=== PATIENT | male | born 1960 | race Caucasian/White ===

== ENCOUNTER → 2020-02-18 | Day surgery (SDC) | payer OTHER ==
[~2020-02-18] MED LIST: EPINEPHrine 1 MG/1 ML Amp ONE; EPINEPHrine 1 MG/ML SDV ONE; HYDROmorphone 0.5 MG/0.5 ML Syringe IVPUSH PRN; Lactated Ringers 1,000 ML IV SCH; Lactated Ringers 1,000 ML ONE; Lidocaine 1% 2 ML ONE; Lidocaine 1% 4 ML ONE; Lidocaine 1%/Sod Bicarbonate in NS 8.4% 1 ML Syringe IDERM PRN; Midazolam 1 MG/ML 2 ML SDV ONE; Ondansetron 4 MG/2 ML SDV ONE; Propofol 200 MG/20 ML SDV ONE; Ropivacaine 0.5% 5 MG/ML 30 ML SDV ONE; Sodium Chloride 0.9% 10 ML Syringe FLUSH PRN; Succinylcholine/Sod PF 100 MG/5 ML SYRINGE IV ONE; ceFAZolin 1 GM Vial ONE; cloNIDine 1,000 MCG/10 ML SDV ONE; fentaNYL 100 MCG/2 ML SDV IVPUSH PRN; fentaNYL 100 MCG/2 ML SDV ONE
--- NOTE | 2020-02-18 08:10 | PCM.PREANE ---
Preanesthetic Assessment - Procedure Proposed Procedure: Right Shoulder SVA with Rotator Cuff Repair - Anesthesia/Transfusion/Family Hx Anesthesia History: Prior Anesthesia Without Reaction Family History of Anesthesia Reaction: No Transfusion History: No Prior Transfusion(s) Type of Transfusion Reactions: Reports: Unknown - Review of Systems General: No Symptoms Pulmonary: Other (Sleep Apnea with CPAP use. ) Cardiovascular: No Symptoms Gastrointestinal: No Symptoms Neurological: No Symptoms Other: Reports: None (Recovered from ETOH abuse. No ETOH since 2001. ) - Physical Assessment NPO Status Date: 02/17/20 NPO Status Time: 17:00 Weight: 84.6 kg ASA Class: 2 Mental Status: Alert & Oriented x3 Airway Class: Mallampati = 1 Dentition: Reports: Implants (Front Upper ) Thyro-Mental Finger Breadths: 3 Mouth Opening Finger Breadths: 3 ROM/Head Extension: Full Lungs: Clear to Auscultation, Normal Respiratory Effort Cardiovascular: Regular Rhythm, Bradycardia - Lab Values: Laboratory Last Values SARS Virus RNA (PCR) Negative (NEGATIVE) 02/16/20 10:52 MRSA (PCR) Negative 02/16/20 11:07 - Allergies Allergies/Adverse Reactions: Allergies Allergy/AdvReac Type Severity Reaction Status Date / Time No Known Allergies Allergy Verified 03/01/16 22:05 - Acknowledgements Anesthesia Type Planned: General Anesthesia, Regional Block (Interscalene Nerve Block Requested per Dr. Matamoros for post op pain control. ) Pt an Appropriate Candidate for the Planned Anesthesia: Yes Alternatives and Risks of Anesthesia Discussed w Pt/Guardian: Yes Pt/Guardian Understands and Agrees with Anesthesia Plan: Yes PreAnesthesia Questionnaire - Past Health History Medical/Surgical History: Denies Medical/Surgical History - Infectious Disease History Infectious Disease History: Reports: MRSA - Past Surgical History Musculoskeletal Surgical History: Reports: Other (See Below) - HOME MEDS Home Medications: Home Meds Non-Formulary Medication [NF Drug] 1 each .XX DAILY 03/02/16 [History] Aspirin [Ecotrin] 325 mg PO BID tab.ec 03/03/16 [Rx] Bisacodyl [Dulcolax] 5 mg PO DAILY PRN #0 tablet 03/03/16 [Rx] Docusate Sodium [Colace] 100 mg PO BID PRN #0 cap 03/03/16 [Rx] Famotidine [Pepcid] 20 mg PO Q12H tablet 03/03/16 [Rx] Magnesium Hydroxide [Milk of Magnesia] 30 ml PO BID PRN #0 cup 03/03/16 [Rx] Sennosides [Senna] 8.6 mg PO BID PRN #0 tablet 03/03/16 [Rx] diphenhydrAMINE [Benadryl] 25 mg PO Q4H PRN #0 tablet 03/03/16 [Rx] Acetaminophen/HYDROcodone [[place] 325-5 MG] 1 - 2 tab PO Q6H PRN #40 tablet 02/17 [Rx] Cyclobenzaprine [Flexeril] 10 mg PO Q12H PRN #20 tab 02/18/20 [Rx] - CURRENT (IN HOUSE) MEDS Current Meds: Current Medications Epinephrine HCl (Adrenalin) 3 mg .XX ONETIME ONE Stop: 02/18/20 09:01 Lactated Ringer's (Ringers, Lactated) 1,000 mls @ 125 mls/hr IV ASDIRECTED ROULA Stop: 02/18/20 23:00 Lidocaine/Sodium Bicarbonate (Buffered Lidocaine 1% In Ns 8.4%) 0.25 ml IDERM ONETIME PRN PRN Reason: Prior to IV Start Stop: 02/18/20 18:00 Sodium Chloride (Saline Flush) 10 ml FLUSH ASDIRECTED PRN PRN Reason: Keep Vein Open Stop: 02/18/20 18:00 Discontinued Medications Clonidine HCl (Duraclon) Confirm Administered Dose 1,000 mcg .ROUTE .STK-MED ONE Stop: 02/18/20 07:43 Epinephrine HCl (Adrenalin) Confirm Administered Dose 1 mg .ROUTE .STK-MED ONE Stop: 02/18/20 07:40 Fentanyl (Sublimaze) Confirm Administered Dose 100 mcg .ROUTE .STK-MED ONE Stop: 02/18/20 07:44 Midazolam HCl (Versed 1 Mg/Ml) Confirm Administered Dose 4 mg .ROUTE .STK-MED ONE Stop: 02/18/20 07:43 Ropivacaine (Naropin 0.5%) Confirm Administered Dose 30 ml .ROUTE .STK-MED ONE Stop: 02/18/20 07:40
--- NOTE | 2020-02-18 09:42 | PCM.PRNOTE ---
- Free Text/Narrative Note: Postoperative regional pain control requested by surgeon. Pre-op Dx: Right Rotator cuff tear Surgical procedure: Rt shoulder arthroscopy with Rotator cuff repair Procedure: Rt Interscalene block with U/S guidance Requesting physician: Dr. Amaury Nice Risks and benefits discussed with the patient preoperatively including infection , bleeding, incomplete or failed block, possible nerve damage, local anesthetic toxicity. Chart reviewed, VS stable. Permit signed. Patient in preoperative room, stable , alert and awake. Time out performed at 08 :33. Oxygen 3L via NC. Right side of the neck was prepped with Chloraprep x 1 and allowed to dry. Midazolam IV 4 mg (total, in incremental doses) were given. Under aseptic technique, the brachial plexus was identified under ultrasound prior to needle insertion. Local infiltration with 2mls of 1% Lidocaine. 2" Stimuplex needle #22 G was inserted under US guidance. Neuromuscular response of biceps contraction and forearm twitching elicited at 0.6 mA. Under direct visualization of needle tip the injection of 0.5% Ropivacaine with 1:200k epinephrine and 100 mcg of Clonidine, total of 30 mls in divided doses, maintaining negative aspiration was completed without problems. No local anesthetic toxicity was noted. Patient is awake, stable and tolerated the procedure well. Please see the attached U/S images Time: 08:33 - 08:43
--- NOTE | 2020-02-18 10:49 | PCM.POSTAN ---
POST ANESTHESIA ASSESSMENT - MENTAL STATUS Mental Status: Somnolent - VITAL SIGNS Vital Signs: 1st VS st in PACU 96.8F HR 62 RR 11 BP 126/79 SpO2 97% on 4 L O2 Last Vital Signs Temp 97.0 F 02/18/20 10:45 Pulse 61 02/18/20 10:45 Resp 18 02/18/20 10:45 BP 119/83 02/18/20 10:45 Pulse Ox 97 02/18/20 10:45 - RESPIRATORY Respiratory Status: Respiratory Rate WNL, Airway Patent, O2 Saturation Stable - CARDIOVASCULAR CV Status: Pulse Rate WNL, Blood Pressure Stable - GASTROINTESTINAL GI Status: No Symptoms - PAIN Pain Score: 0 - POST OP HYDRATION Hydration Status: Adequate & Stable
[2020-02-18 12:00] VITALS: BP 122/78; PULSE 62
--- NOTE | 2020-02-22 12:19 | PCM.OPNOTE ---
- General Post-Op/Procedure Note Date of Surgery/Procedure: 02/18/20 Operative Procedure(s): right shoulder video arthroscopy with medium rotator cuff repair, subacromial decompression and extensive debridement with biceps tenotomy Pre Op Diagnosis: right shoulder rotator cuff tear with impingement with biceps tendinopathy Post-Op Diagnosis: Same Anesthesia Technique: General ET Tube, Regional Block Primary Surgeon: Amaury Matamoros Anesthesia Provider: José Jenkins [employer] Designer: Roselia Toro EBHolli in mLs: 5 Complications: None Condition: Good
--- NOTE | 2020-02-23 11:40 | OR ---
DATE OF OPERATION: 02/18/2020 SURGEON: Amaury Matamoros MD OPERATION PERFORMED: Right shoulder video arthroscopy with medium rotator cuff repair, subacromial decompression, and extensive debridement with biceps tenotomy. PREOPERATIVE DIAGNOSIS: Right shoulder rotator cuff tear with impingement and biceps tendinopathy. POSTOPERATIVE DIAGNOSIS: Right shoulder rotator cuff tear with impingement and biceps tendinopathy. ANESTHESIA: Technique: General endotracheal intubation with regional interscalene block. ANESTHESIA PROVIDER: Valentine Shaver. PARAMEDIC: Roselia Toro PA-C ESTIMATED BLOOD LOSS: Less than 5 mL. COMPLICATIONS: None. CONDITION: Stable. DESCRIPTION OF PROCEDURE: The patient was identified in the preop holding area. Proper site was marked and identified by the surgeon. The patient was taken back to the operating theater where after adequate anesthesia, the patient was placed in the lazy left lateral decubitus position. Wedge was placed posteriorly. The patient was secured to the table. Right upper extremity was then sterilely prepped and draped in the usual sterile fashion. OR time-out was performed. The patient received 2 g IV Ancef. 12 pounds traction was applied to the right upper extremity. At this time, a standard posterior incision was made. Scope trocar was introduced to the glenohumeral joint. The patient was noted to have no chondromalacia. With the use of a spinal needle, anterior portal was created with outside in technique. The biceps tendon was noted to have significant fraying at its attachment as well as tendinopathy. The subscapularis tendon was intact. The patient was noted to have a full-thickness rotator cuff tear in the midportion of the supraspinatus. At this time, a biceps tenotomy was performed and a significant debridement of any fraying of the labrum as well as synovitis was done at this time as well. Once this was completed, attention was turned to the subacromial space. The patient was noted to have a significant amount of bursitis and extensive debridement was done of the subacromial space. The tear was identified and with use of a resector as well as a navi, a good bony bleeding bed was prepared for repair of the rotator cuff. An Arthrex all-suture anchor was then placed medially and it was triple-loaded. At this time, the six limbs of the tape were started anteriorly and brought all the way past posteriorly and had good convergence on the tear. At this time, one lateral row Maria D anchor was placed anteriorly and then was placed posteriorly, bringing out three limbs in each of those for cross pattern across the tear site with good compression and complete hinduism of the footprint of the supraspinatus. It was found to have watertight repair. An extensive debridement of the undersurface of the acromion was done and then an acromioplasty was done from the lateral portal which was created earlier. This was brought back to a smooth border with the posterior rim of the acromion. Excess saline was drained from the joint. 3-0 nylon suture was used for closure of skin. The patient was placed in a sterile soft dressing and a pillow sling and sent to the PACU in stable condition. CAROLA /[id number]
== END | disposition home or self-care (01) ==
LOC: JD.SDS 06:52
PROVIDERS: ATTEND Orthopaedic Surgery
DX: M75.121 Complete rotator cuff tear or rupture of right shoulder, not specified as traumatic (principal); M75.21 Bicipital tendinitis, right shoulder; M25.811 Other specified joint disorders, right shoulder; Z11.59 Encounter for screening for other viral diseases; Z79.82 Long term (current) use of aspirin; Z79.899 Other long term (current) drug therapy
CPT/HCPCS: 29823; 29826; 29827; 87635; 87641; J0171; J0330; J0690; J0735; J2001; J2250; J2405; J2704; J2795; J3010; J7120; 01630; 64415; U0002

== ENCOUNTER 2020-06-02 08:08 | Day surgery (SDC) | payer OTHER ==
[~2020-06-02 08:08] MED LIST changes: -EPINEPHrine 1 MG/1 ML Amp ONE; -EPINEPHrine 1 MG/ML SDV ONE; -HYDROmorphone 0.5 MG/0.5 ML Syringe IVPUSH PRN; -Lactated Ringers 1,000 ML ONE; -Lidocaine 1% 2 ML ONE; -Ondansetron 4 MG/2 ML SDV ONE; -Ropivacaine 0.5% 5 MG/ML 30 ML SDV ONE; -Succinylcholine/Sod PF 100 MG/5 ML SYRINGE IV ONE; -ceFAZolin 1 GM Vial ONE; -cloNIDine 1,000 MCG/10 ML SDV ONE; -fentaNYL 100 MCG/2 ML SDV IVPUSH PRN
--- NOTE | 2020-06-02 08:39 | PCM.PREANE ---
Preanesthetic Assessment - Procedure Proposed Procedure: hardware removal right patella - Anesthesia/Transfusion/Family Hx Anesthesia History: Prior Anesthesia Without Reaction Family History of Anesthesia Reaction: No Transfusion History: No Prior Transfusion(s) Type of Transfusion Reactions: Reports: Unknown - Review of Systems General: No Symptoms Pulmonary: No Symptoms Cardiovascular: No Symptoms Gastrointestinal: No Symptoms Neurological: No Symptoms Other: Reports: None - Physical Assessment NPO Status Date: 06/01/20 NPO Status Time: 00:00 Vital Signs: Last Vital Signs Temp 36.3 C 06/02/20 08:05 Pulse 60 06/02/20 08:05 Resp 16 06/02/20 08:05 BP 134/93 H 06/02/20 08:05 Pulse Ox 97 06/02/20 08:05 Height: 1.73 m Weight: 85.729 kg ASA Class: 2 Mental Status: Alert & Oriented x3 Airway Class: Mallampati = 1 Dentition: Reports: Normal Dentition, [place](s), Implants (front top) Thyro-Mental Finger Breadths: 3 Mouth Opening Finger Breadths: 3 ROM/Head Extension: Full Lungs: Clear to Auscultation, Normal Respiratory Effort Cardiovascular: Regular Rate, Regular Rhythm - Lab Values: Laboratory Last Values SARS Virus RNA (PCR) Negative (NEGATIVE) 05/31/20 11:25 MRSA (PCR) Negative 05/31/20 11:14 - Imaging/EKG Impressions: EKG SR rate 59 - Allergies Allergies/Adverse Reactions: Allergies Allergy/AdvReac Type Severity Reaction Status Date / Time No Known Allergies Allergy Verified 06/01/20 14:11 - Blood Blood Available: No Product(s) Available: None - Anesthesia Plan Pre-Op Medication Ordered: None - Acknowledgements Anesthesia Type Planned: MAC Pt an Appropriate Candidate for the Planned Anesthesia: Yes Alternatives and Risks of Anesthesia Discussed w Pt/Guardian: Yes Pt/Guardian Understands and Agrees with Anesthesia Plan: Yes PreAnesthesia Questionnaire - Past Health History Medical/Surgical History: Denies Medical/Surgical History HEENT History: Reports: None Cardiovascular History: Reports: None Respiratory History: Reports: Sleep Apnea Gastrointestinal History: Reports: None Genitourinary History: Reports: None 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: 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: 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 Musculoskeletal History: Reports: None Neurological History: Reports: None Psychiatric History: Reports: None Endocrine/Metabolic History: Reports: None Hematologic History: Reports: None Immunologic History: Reports: None Oncologic (Cancer) History: Reports: None Dermatologic History: Reports: None - Infectious Disease History Infectious Disease History: Reports: None - Past Surgical History Head Surgeries/Procedures: Reports: None HEENT Surgical History: Reports: None Cardiovascular Surgical History: Reports: None Respiratory Surgical History: Reports: None GI Surgical History: Reports: Colonoscopy Female Surgical History: Reports: None Male Surgical History: Reports: None Endocrine Surgical History: Reports: None Neurological Surgical History: Reports: None Musculoskeletal Surgical History: Reports: Shoulder Surgery, Other (See Below) Other Musculoskeletal Surgeries/Procedures:: Right knee surgery in 1980, torn meniscus/ACL. Left knee surgery in 1977, torn meniscus. Left hand surgery, hand caught in table saw with cut tendons repaired Oncologic Surgical History: Reports: None Dermatological Surgical History: Reports: None - SUBSTANCE USE Smoking Status *Q: Never Smoker Tobacco Use Within Last Twelve Months: No Second Hand Smoke Exposure: Yes Days Per Week of Alcohol Use: 0 Number of Drinks Per Day: 0 Total Drinks Per Week: 0 Recreational Drug Use History: No - HOME MEDS Home Medications: Home Meds Cholecalciferol (Vitamin D3) [Vitamin D3] 1,000 unit PO DAILY 06/01/20 [History] Cyanocobalamin (Vitamin B12) [Vitamin B12] 1,000 mcg PO DAILY 06/01/20 [History] Lactobacillus Combo No.10 [Probiotic] 1 cap PO DAILY 06/01/20 [History] Testosterone Vitamin 1 dose PO DAILY 06/01/20 [History] Zinc 50 mg PO DAILY 06/01/20 [History] Acetaminophen/HYDROcodone [[place] 325-5 MG] 1 - 2 tab PO Q6H PRN #30 tablet 06/02/20 [Rx] Aspirin 325 mg PO BID #84 tab 06/02/20 [Rx] - CURRENT (IN HOUSE) MEDS Current Meds: Current Medications Lactated Ringer's (Ringers, Lactated) 1,000 mls @ 125 mls/hr IV ASDIRECTED ROULA Stop: 06/02/20 23:00 Last Admin: 06/02/20 08: Dose: 125 mls/hr Documented by: Lidocaine/Sodium Bicarbonate (Buffered Lidocaine 1% In Ns 8.4%) 0.25 ml IDERM ONETIME PRN PRN Reason: Prior to IV Start Stop: 06/02/20 18:00 Last Admin: 06/02/20 08:20 Dose: 0.25 ml Documented by: Sodium Chloride (Saline Flush) 10 ml FLUSH ASDIRECTED PRN PRN Reason: Keep Vein Open Stop: 06/02/20 18:00 Discontinued Medications Fentanyl (Sublimaze) Confirm Administered Dose 100 mcg .ROUTE .STK-MED ONE Stop: 06/02/20 07:56 Lidocaine HCl (Xylocaine-Mpf 1%) Confirm Administered Dose 4 mls @ as directed .ROUTE .STK-MED ONE Stop: 06/02/20 07:55 Midazolam HCl (Versed 1 Mg/Ml) Confirm Administered Dose 2 mg .ROUTE .STK-MED ONE Stop: 06/02/20 07:56 Propofol (Diprivan 20 Ml) Confirm Administered Dose 200 mg .ROUTE .STK-MED ONE Stop: 06/02/20 07:55
[2020-06-02] MEDS ORDERED: Bupivacaine 0.25% 10 ML SDV ONE (09:01)
[2020-06-02] MEDS ORDERED: ceFAZolin 1 GM Vial ONE (09:28)
[2020-06-02] MEDS ORDERED: Propofol 200 MG/20 ML SDV ONE ×2 (09:56→10:26)
[2020-06-02] MEDS ORDERED: Lactated Ringers 1,000 ML ONE (10:29)
--- NOTE | 2020-06-02 11:13 | PCM48HPAN ---
Post Anesthesia Note - EVALUATION WITHIN 48HRS OF ANESTHETIC Vital Signs in Normal Range: Yes Patient Participated in Evaluation: Yes Respiratory Function Stable: Yes Airway Patent: Yes Cardiovascular Function Stable: Yes Hydration Status Stable: Yes Pain Control Satisfactory: Yes Nausea and Vomiting Control Satisfactory: Yes Mental Status Recovered: Yes Vital Signs: Last Vital Signs Temp 36.3 C 06/02/20 08:05 Pulse 60 06/02/20 08:05 Resp 16 06/02/20 08:05 BP 134/93 H 06/02/20 08:05 Pulse Ox 97 06/02/20 08:05 - COMMENTS/OBSERVATIONS Free Text/Narrative:: no anesthesia complications noted
[2020-06-02] MEDS ORDERED: Acetaminophen/HYDROcodone 325-5 MG Tab PO SCH (11:29)
[2020-06-02 11:30] VITALS: BP 131/89; PULSE 64
--- NOTE | 2020-06-03 07:11 | CR ---
Patella: AP and lateral views were obtained utilizing C-arm device during reduction and fixation of patellar fracture. Final film shows 2 cannulated screws and third transverse screw being in place. This patellar fracture shows final position that is near anatomic. Fluoroscopy time is given as to 39.7 seconds. Degenerative change noted within the knee. Impression: 1. Procedural study as noted above. 2. Degenerative change within the knee. Diagnostic code #2 This report was dictated in MDT
--- NOTE | 2020-06-08 08:42 | PCM.OPNOTE ---
- General Post-Op/Procedure Note Date of Surgery/Procedure: 06/01/20 Operative Procedure(s): deep hardware removal right patella Pre Op Diagnosis: painful hardware right patella Post-Op Diagnosis: Same Anesthesia Technique: Local, MAC Primary Surgeon: Amaury Matamoros Anesthesia Provider: Marc Marquez EBHolli in mLs: 10 Complications: None Condition: Good
--- NOTE | 2020-06-08 09:55 | OR ---
DATE OF OPERATION: 06/02/2020 SURGEON: Amaury Matamoros MD OPERATION PERFORMED: Deep hardware removal, right patella. PREOPERATIVE DIAGNOSIS: Painful hardware, right patella. POSTOPERATIVE DIAGNOSIS: Painful hardware, right patella. ANESTHESIA: Local MAC. SAMPLE WRAPPER: None. ANESTHESIA PROVIDER: Nino Torres CRNA ESTIMATED BLOOD LOSS: 10 mL. COMPLICATIONS: None. CONDITION: Stable. DESCRIPTION OF PROCEDURE: The patient was identified in the preoperative holding area. Proper site was marked and identified by surgeon. The patient was taken back to the operative theater, where after adequate anesthesia, the patient's right lower extremity was sterilely prepped and draped in the usual sterile fashion. OR time-out was performed. The patient received 2 g of IV Ancef at this time. Preoperatively, the patient and I had discussed that we would not open the entire incision. We would try just to do percutaneous removal of the screws and that we would not be removing the smaller 2.7 screw as it is deeper and would not be in the way of the patellar button when we do our total knee arthroplasty. So, at this time, utilizing C-arm fluoroscopy during the entire procedure, I made a small incision near the inferior pole of the patella, near the medial screw. A guidewire was then placed through the screw. I was able to then remove the screw without difficulty with no remaining hardware of the medial screw. At this time, small percutaneous incision was made laterally. A guide pin was then placed again through the screw. At this point, though, there was significant bony overgrowth and there would have been significant need for removal of patella as well as a larger incision to remove that screw. At this point, it was decided that doing unnecessary damage before total knee arthroplasty would not be warranted, so that we would just remove the remaining screws when we do the total knee arthroplasty at that time as they will be more visible. The patient and his after the anesthesia wore off were in understanding. At this time, adequate saline was irrigated through the wounds. 2-0 Vicryl was used subcutaneously, and nylon was used for closure of the skin. The patient had a sterile soft dressing applied and was sent to the PACU in stable condition and tolerated the procedure well. MMODAL /[id number]
== END 2020-06-02 12:20 | disposition home or self-care (01) ==
LOC: JD.SDS 08:08
PROVIDERS: ATTEND Orthopaedic Surgery
DX: T84.84XA Pain due to internal orthopedic prosthetic devices, implants and grafts, initial encounter (principal); G47.33 Obstructive sleep apnea (adult) (pediatric); Z01.812 Encounter for preprocedural laboratory examination; Z20.828 Contact with and (suspected) exposure to other viral communicable diseases; Z98.890 Other specified postprocedural states
CPT/HCPCS: 20680; 76000; 87635; 87641; A9270; C1769; J0690; J2001; J2250; J2704; J3010; J3490; J7120; 01480; U0002

== ENCOUNTER 2020-07-25 05:58 | Day surgery (SDC) | payer OTHER ==
[~2020-07-25 05:58] MED LIST changes: -Lidocaine 1% 4 ML ONE; -Midazolam 1 MG/ML 2 ML SDV ONE; -Propofol 200 MG/20 ML SDV ONE; -fentaNYL 100 MCG/2 ML SDV ONE
[2020-07-25] MEDS ORDERED: Morphine 8 MG, EPINEPHrine 0.3 MG, Cefuroxime 750 MG, Ketorolac 30 MG, Sodium Chloride ... PRN ×10 (06:00→07:03)
[2020-07-25] MEDS ORDERED: Bupivacaine 0.25% 10 ML SDV ONE (06:12)
[2020-07-25] MEDS ORDERED: oxyCODONE ER 10 MG TAB.ER PO SCH (06:15)
[2020-07-25] MEDS ORDERED: Pregabalin 25 MG Cap PO SCH (06:15)
[2020-07-25] MEDS ORDERED: Acetaminophen 325 MG Tab PO SCH (06:15)
--- NOTE | 2020-07-25 06:35 | PCM.PREANE ---
Preanesthetic Assessment - Anesthesia/Transfusion/Family Hx Anesthesia History: Prior Anesthesia Without Reaction Family History of Anesthesia Reaction: No Transfusion History: No Prior Transfusion(s) Type of Transfusion Reactions: Reports: Unknown - Review of Systems General: No Symptoms Pulmonary: No Symptoms Cardiovascular: No Symptoms Gastrointestinal: No Symptoms Neurological: No Symptoms Other: Reports: None - Physical Assessment NPO Status Date: 07/24/20 NPO Status Time: 18:30 ASA Class: 2 Mental Status: Alert & Oriented x3 Airway Class: Mallampati = 1 Dentition: Reports: Normal Dentition Thyro-Mental Finger Breadths: 3 Mouth Opening Finger Breadths: 3 ROM/Head Extension: Full Lungs: Clear to Auscultation, Normal Respiratory Effort Cardiovascular: Regular Rate, Regular Rhythm - Lab Values: Laboratory Last Values MRSA (PCR) Negative 07/13/20 15:05 - Allergies Allergies/Adverse Reactions: Allergies Allergy/AdvReac Type Severity Reaction Status Date / Time No Known Allergies Allergy Verified 07/25/20 06:28 - Acknowledgements Anesthesia Type Planned: Spinal Pt an Appropriate Candidate for the Planned Anesthesia: Yes Alternatives and Risks of Anesthesia Discussed w Pt/Guardian: Yes Pt/Guardian Understands and Agrees with Anesthesia Plan: Yes PreAnesthesia Questionnaire - Past Health History Medical/Surgical History: Denies Medical/Surgical History HEENT History: Reports: Impaired Vision Cardiovascular History: Reports: None Respiratory History: Reports: Sleep Apnea (CPAP) Gastrointestinal History: Reports: None Genitourinary History: Reports: None 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 INSPECTOR 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: 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: 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 Musculoskeletal History: Reports: None Neurological History: Reports: None Psychiatric History: Reports: None Endocrine/Metabolic History: Reports: None Hematologic History: Reports: None Immunologic History: Reports: None Oncologic (Cancer) History: Reports: None Dermatologic History: Reports: None - Infectious Disease History Infectious Disease History: Reports: None - Past Surgical History Head Surgeries/Procedures: Reports: None HEENT Surgical History: Reports: None Cardiovascular Surgical History: Reports: None Respiratory Surgical History: Reports: None GI Surgical History: Reports: Colonoscopy Female Surgical History: Reports: None Male Surgical History: Reports: None Endocrine Surgical History: Reports: None Neurological Surgical History: Reports: None Musculoskeletal Surgical History: Reports: Shoulder Surgery, Other (See Below) Other Musculoskeletal Surgeries/Procedures:: Right knee surgery in 1980, torn meniscus/ACL. Left knee surgery in 1977, torn meniscus. Left hand surgery, hand caught in table saw with cut tendons repaired, R SVSA with RCR and SAD Oncologic Surgical History: Reports: None Dermatological Surgical History: Reports: None - SUBSTANCE USE Tobacco Use Status *Q: Former Tobacco User Recreational Drug Use History: No - HOME MEDS Home Medications: Home Meds Cholecalciferol (Vitamin D3) [Vitamin D3] 1,000 unit PO DAILY 06/01/20 [History] Cyanocobalamin (Vitamin B12) [Vitamin B12] 1,000 mcg PO DAILY 06/01/20 [History] Lactobacillus Combo No.10 [Probiotic] 1 cap PO DAILY 06/01/20 [History] Testosterone Vitamin 1 dose PO DAILY 06/01/20 [History] Zinc 50 mg PO DAILY 06/01/20 [History] Fish Oil/[place]-3 Fatty Acids [Fish Oil 1,000 MG] 1 gm PO DAILY 07/22/20 [History] Dipika 500 mg PO DAILY 07/22/20 [History] Saw/Vit E/Sod [place]/Lyc/Beta/Pyg [Prostate Health Caplet] 1 tab PO DAILY 07/22/20 [History] Vitamin K2 40 mcg PO DAILY 07/22/20 [History] - CURRENT (IN HOUSE) MEDS Current Meds: Current Medications Acetaminophen (Tylenol) 975 mg PO NOW ROULA Stop: 07/25/20 12:00 Last Admin: 07/25/20 06:27 Dose: 975 mg Documented by: Lactated Ringer's (Ringers, Lactated) 1,000 mls @ 125 mls/hr IV ASDIRECTED ROULA Stop: 07/25/20 23:00 Last Admin: 07/25/20 06:27 Dose: 125 mls/hr Documented by: Lidocaine/Sodium Bicarbonate (Buffered Lidocaine 1% In Ns 8.4%) 0.25 ml IDERM ONETIME PRN PRN Reason: Prior to IV Start Stop: 07/25/20 23:00 Last Admin: 07/25/20 06:27 Dose: 0.25 ml Documented by: Oxycodone HCl (Oxycontin) 10 mg PO ONETIME ROULA Stop: 07/25/20 12:00 Last Admin: 07/25/20 06:27 Dose: 10 mg Documented by: Pregabalin (Lyrica) 50 mg PO ONETIME ROULA Stop: 07/25/20 12:00 Last Admin: 07/25/20 06:27 Dose: 50 mg Documented by: Sodium Chloride (Saline Flush) 10 ml FLUSH ASDIRECTED PRN PRN Reason: Keep Vein Open Stop: 07/25/20 23:00 Discontinued Medications Bupivacaine HCl (Sensorcaine-Mpf 0.25%) Confirm Administered Dose 30 ml .ROUTE .STK-MED ONE Stop: 07/25/20 06:13 Morphine Sulfate 8 mg/Epinephrine HCl 0.3 mg/Cefuroxime Sodium 750 mg/Ketorolac Tromethamine 30 mg/Sodium Chloride 7.9 ml 0 mg .XX ASDIRECTED PRN PRN Reason: Pain Tranexamic Acid (Cyklokapron) Confirm Administered Dose 1,000 mg .ROUTE .STK-MED ONE Stop: 07/25/20 06:13 Vancomycin HCl (Vancomycin) Confirm Administered Dose 1 gm .ROUTE .STK-MED ONE Stop: 07/25/20 06:13
[2020-07-25] MEDS ORDERED: Lidocaine 1% 4 ML ONE (06:46)
[2020-07-25] MEDS ORDERED: Propofol 200 MG/20 ML SDV ONE ×2 (06:46→08:03)
[2020-07-25] MEDS ORDERED: fentaNYL 100 MCG/2 ML SDV ONE (06:48)
[2020-07-25] MEDS ORDERED: Midazolam 1 MG/ML 2 ML SDV ONE (06:48)
[2020-07-25] MEDS ORDERED: ceFAZolin 1 GM Vial ONE (06:49)
[2020-07-25] MEDS ORDERED: ePHEDrine 50 MG/ML SDV ONE (07:32)
[2020-07-25] MEDS ORDERED: EPINEPHrine 1 MG/ML SDV ONE (07:39)
[2020-07-25] MEDS ORDERED: Ropivacaine 0.5% 5 MG/ML 30 ML SDV ONE (07:39)
[2020-07-25] MEDS ORDERED: fentaNYL 100 MCG/2 ML SDV IVPUSH PRN (07:43)
[2020-07-25] MEDS ORDERED: Ondansetron 4 MG/2 ML SDV IVPUSH PRN (07:43)
[2020-07-25] MEDS ORDERED: Lactated Ringers 1,000 ML ONE (07:52)
[2020-07-25] MEDS ORDERED: Ketorolac 30 MG/ML SDV ONE (08:10)
[2020-07-25] MEDS ORDERED: Ondansetron 4 MG/2 ML SDV ONE (08:10)
[2020-07-25] MEDS: Vancomycin 1 GM SDV ONE ×2 (08:15→08:25)
--- NOTE | 2020-07-25 08:49 | PCM.POSTAN ---
POST ANESTHESIA ASSESSMENT - MENTAL STATUS Mental Status: Alert, Oriented - VITAL SIGNS Vital Signs: Last Vital Signs Temp 36.5 C 07/25/20 06:05 Pulse 62 07/25/20 06:05 Resp 16 07/25/20 06:05 BP 113/84 07/25/20 06:05 Pulse Ox 98 07/25/20 06:05 - RESPIRATORY Respiratory Status: Respiratory Rate WNL, Airway Patent, O2 Saturation Stable - CARDIOVASCULAR CV Status: Pulse Rate WNL, Blood Pressure Stable - GASTROINTESTINAL GI Status: No Symptoms - PAIN Pain Score: 0 - POST OP HYDRATION Hydration Status: Adequate & Stable
--- NOTE | 2020-07-25 09:43 | PCM.SN.2 ---
- Free Text/Narrative Note: Right selective femoral nerve block at the adductor canal for post-procedure pain control under US guidance requested by Dr. Matamoros. Time Out: 906 Start: 906 End: 911 Chart reviewed. Consent signed. Questions answered. Appropriate monitors applied. Time out performed. Right mid-shaft femur identified with ultrasound, scanning medially of femur, the femoral artery in the adductor canal visualized, and the femoral nerve located laterally to the artery. The skin was prepped lateral to the ultrasound probe with chlorahexadine times two. The 21ga 4 insulated block needle was inserted under direct ultrasound guidance into the adductor canal. 25 mL of 0.5% ropivacaine with 1:200,000 epinephrine was injected circumferentially around the nerve with intermittent negative aspiration noted. Patient tolerated the procedure well. Sterile technique noted along with sterile gloves, mask, and sterile probe cover. See picture on progress note and vital signs on nurses notes. Block completed in PACU. Marc Marquez CRNA
--- NOTE | 2020-07-25 10:55 | CR ---
PROCEDURE INFORMATION: Exam: XR Right Knee Exam date and time: 07/25/2020 9:06 AM Age: 60 years old Clinical indication: Condition or disease; Joint replacement status; Knee; Right; Additional info: Right total knee replacement; Post-op films TECHNIQUE: Imaging protocol: XR Right knee. Views: 1 or 2 views. COMPARISON: CR Bone Age Study, Bone Length Scanogram, Knee 3V Rt, Knee Standing 05/11/2020 1:14 PM FINDINGS: Bones/joints: There is a right total knee arthroplasty without evidence of hardware complication. Screws are again present in the patella. Very small residual osteophytes at the medial and lateral as well as posterior articular margins of the tibia and at the lateral femoral condyle. No acute fracture. Normal alignment. Bone mineralization is normal. Soft tissues: There is postoperative soft tissue air anteriorly. Anterior soft tissue swelling. Knee joint effusion appears to be present. IMPRESSION: Right total knee arthroplasty without evidence of hardware complication. Thank you for allowing us to participate in the care of your patient. Dictated and Authenticated by: Era Corrigan MD 07/25/2020 10:47 AM Central Time ([place] & [place]) ARIANE
--- NOTE | 2020-07-25 11:28 | PCM48HPAN ---
Post Anesthesia Note - EVALUATION WITHIN 48HRS OF ANESTHETIC Vital Signs in Normal Range: Yes Patient Participated in Evaluation: Yes Respiratory Function Stable: Yes Airway Patent: Yes Cardiovascular Function Stable: Yes Hydration Status Stable: Yes Pain Control Satisfactory: Yes Nausea and Vomiting Control Satisfactory: Yes Mental Status Recovered: Yes Vital Signs: Last Vital Signs Temp 36.8 C 07/25/20 10:50 Pulse 70 07/25/20 10:50 Resp 12 07/25/20 10:50 BP 107/64 07/25/20 10:50 Pulse Ox 96 07/25/20 10:50
[2020-07-25 13:49] VITALS: BP 112/76; PULSE 51
--- NOTE | 2020-08-04 12:13 | PCM.OPNOTE ---
- General Post-Op/Procedure Note Date of Surgery/Procedure: 07/25/20 Operative Procedure(s): right total knee arthroplasty with right knee patellar hardware removal Pre Op Diagnosis: right knee osteoarthrosis with hardware Post-Op Diagnosis: Same Anesthesia Technique: Local, MAC, Spinal Primary Surgeon: Amaury Matamoros Anesthesia Provider: Xiao Bridges [employer] Supervisor: Roselia Toro [employer] Supervisor: Ramandeep Silva EBHolli in mLs: 5 Complications: None Condition: Good Free Text/Narrative:: 5 5 9mm 33x9 patella cemented
--- NOTE | 2020-08-08 08:01 | OR ---
DATE OF OPERATION: 07/25/2020 SURGEON: Amaury Matamoros MD OPERATION PERFORMED: Right total knee arthroplasty with right knee patellar hardware removal. PREOPERATIVE DIAGNOSIS: Right knee osteoarthrosis with hardware. POSTOPERATIVE DIAGNOSIS: Right knee osteoarthrosis with hardware. ANESTHESIA: Local MAC with spinal. ANESTHESIA PROVIDER: Xiao Bridges CRNA. ASSISTANTS: Roselia Toro PA-C, and Ramandeep Silva LPN. ESTIMATED BLOOD LOSS: 5 mL. COMPLICATIONS: None. CONDITION: Stable. IMPLANTS: 1. [place] size 5 press-fit CR femur. 2. Maria D size 5 press-fit tibial baseplate. 3. Maria D size 5 9 mm CS polyethylene insert. 4. [place] size 33 x 9 mm cemented asymmetric patella. DESCRIPTION OF PROCEDURE: The patient was identified in the preoperative holding area. Proper site was marked and identified by the surgeon. The patient was taken back to the operative theater, where after adequate anesthesia, nonsterile tourniquet was applied. The right lower extremity was then sterilely prepped and draped in usual sterile fashion. OR time-out was performed. The patient received 2 g IV Ancef. Right lower extremity was exsanguinated. Tourniquet was insufflated to 250 mmHg. The previous incision was utilized over the patella. This was taken down and a medial parapatellar arthrotomy was created. Deep fibers of the MCL were raised. Any scar tissue was removed around the patella. At this time, attention was turned to the patella, and the patella measured a 25 and was resected to a 15 for 33 x 9 mm patella. At this time, I did run into the washer from the previous screw and we did remove that hardware, the other 2 screws, 1 did come out, the other 1 was visible, but was retained as it was in good bone yet and not loose. I was able to position the buttons for the patella around the remaining screw and drilled drill holes for the patella with good bone stock for cementing. Attention was turned to the distal femur. Intramedullary drill hole was placed in the distal femur. The intramedullary cutting guide for the distal femur was placed. An 8 mm was resected off the distal femur. The sizing guide was placed and epicondylar access holes were drilled using Whitesides line and epicondyles as reference. 4 in 1 cutting block for a size 5 was then placed anterior to posterior and anterior and posterior chamfer cuts were then completed and found to be adequate. Attention was turned to the tibia. Anterior, posterior, and then mediolateral retractors were placed. The extramedullary tibial cutting guide was then placed in the old footprint of the ACL and was aligned with the center point of the ankle. A 9 mm was then resected off the good lateral side of the knee and it was found to have an adequate resection. Medial and lateral meniscus were then both removed as well as any posterior bony osteophytes. A size 5 baseplate was found to have adequate coverage. Trial implants were then placed, 9 mm spacer and the patella was tracking centrally with no signs of patellar subluxation. Cement was mixed on the back table. The patella was then irrigated and then completely dried. The size 5 press-fit tibial baseplate was impacted into place after it was properly stamped and drilled. The size 5 femur was impacted into place and a 9 mm CS polyethylene insert was impacted into place. The patient's knee was brought to full extension and then the patellar button was cemented in place. It was held while the cement cured. 1 L of pulse lavage irrigation was irrigated through the knee along with IrriSept irrigation. Once this was completed, periarticular injection was completed. Topical tranexamic acid and vancomycin powder were applied. A #2 barbed suture was used for closure of the medial parapatellar arthrotomy. 2-0 Vicryl was used subcutaneously, Prineo was used for the skin. The patient had a sterile soft dressing applied and was sent to the PACU in stable condition. CAROLA /[id number]
== END 2020-07-25 13:45 | disposition home or self-care (01) ==
LOC: JD.SDS 05:58 → EDSTATUS 08:00 → JD.SDS 13:45
PROVIDERS: ATTEND Orthopaedic Surgery
DX: M17.11 Unilateral primary osteoarthritis, right knee (principal); G47.33 Obstructive sleep apnea (adult) (pediatric); Z98.890 Other specified postprocedural states; Z79.899 Other long term (current) drug therapy; G89.18 Other acute postprocedural pain
CPT/HCPCS: 27447; 73560; 87641; 97110; 97116; 97161; 97165; A9270; C1776; J0171; J0690; J0697; J1885; J2001; J2250; J2270; J2405; J2704; J2795; J3010; J3370; J3490; J7120; 01402; 64450